=== PATIENT | female | born 1995 | race Caucasian/White ===

== ENCOUNTER 2020-12-08 11:46 | Emergency (ER) | payer MEDICAID ==
[~2020-12-08] VITALS: Ht 162.6 cm; Wt 61.0 kg
[2020-12-08 12:32] LABS: BASOPHILS % 0.2 % (0.0-2.0); HEMATOCRIT. 31.1 % (36.0-48.0); HEMOGLOBIN. 10.4 g/dL (12.0-16.0); MEAN CORPUSCULAR HEMOGLOBIN 25.8 pg (28.0-32.0); MEAN PLATELET VOLUME 7.8 fl (7.4-10.4); MONOCYTES % 6.3 % (2.0-8.0); NEUTROPHILS % 76.5 % (40.0-76.0); PLATELET 397 x1000/uL (130-400); RED BLOOD CELL COUNT 4.03 mill/uL (4.2-5.4)
[2020-12-08 12:39] LABS: CHLORIDE 107 mEq/L (98-107)
[2020-12-08] MEDS ORDERED: SODIUM CHLORIDE 0.9% 1,000 ML IV ONE (14:15)
[2020-12-08] MEDS ORDERED: CEFTRIAXONE 1 G PREMIX 50 ML IV ONE (14:15)
[2020-12-08] MEDS ORDERED: VANCOMYCIN 1 G PREMIX 200 ML IV SCH (14:15)
[2020-12-08] MEDS ORDERED: POTASSIUM CHLORIDE 20MEQ TABLET SR PO ONE (14:45)
[2020-12-08 22:20] VITALS: BP 151/96
== END 2020-12-08 22:31 | disposition short-term general hospital (02) ==
LOC: EDBD 12:01 → ER 12:01
DX: L03.116 Cellulitis of left lower limb (principal); L03.115 Cellulitis of right lower limb; F15.10 Other stimulant abuse, uncomplicated
CPT/HCPCS: 36415; 73630; 80053; 81025; 83605; 85025; 87040; 96365; 96367; 99285; J0696; J3370; J7030; Z7610

== ENCOUNTER 2021-06-11 19:30 | Emergency (ER) | payer MEDICAID, OTHER ==
[~2021-06-11] VITALS: Ht 160 cm; Wt 61.0 kg
[2021-06-11] MEDS ORDERED: MAGNESIUM/ALUMINUM HYDROXIDE/SIMETHICONE 30ML UDC PO STA (22:31)
[2021-06-11] MEDS ORDERED: VISCOUS LIDOCAINE 2% 15 ML UDC PO STA (22:31)
[2021-06-11 23:00] LABS: BASOPHILS % 0.6 % (0.0-2.0); EOSINOPHILS % 1.3 % (0.0-5.0); HEMATOCRIT. 32.8 % (36.0-48.0); LYMPHOCYTES % 37.2 % (20.0-50.0); MEAN CORPUSCULAR HEMOGLOBIN 29.8 pg (28.0-32.0); MEAN PLATELET VOLUME 8.3 fl (7.4-10.4); MONOCYTES % 11.2 % (2.0-8.0); NEUTROPHILS % 49.7 % (40.0-76.0); PLATELET 241 x1000/uL (130-400); RED BLOOD CELL COUNT 3.68 mill/uL (4.2-5.4)
[2021-06-11 23:01] LABS: CLARITY URINE CLOUDY (CLEAR); COLOR URINE YELLOW (YELLOW); KETONES URINE TRACE (NEGATIVE); LEUKOCYTE ESTERASE URINE 2+ (NEGATIVE); NITRITE URINE NEGATIVE (NEGATIVE); OCCULT BLOOD URINE NEGATIVE (NEGATIVE); PH URINE 5.5 (4.5-8.0); PROTEIN URINE 1+ (NEGATIVE); SPECIFIC GRAVITY URINE 1.045 (1.005-1.030)
[2021-06-11 23:07] LABS: CHLORIDE 113 mEq/L (98-107)
[2021-06-11 23:08] LABS: HCG SCREEN NEGATIVE
[2021-06-12] MEDS ORDERED: NITR-87 PO
[2021-06-12 00:27] VITALS: BP 134/64
== END 2021-06-12 00:28 | disposition home or self-care (01) ==
LOC: ER 19:30
DX: N39.0 Urinary tract infection, site not specified (principal); R10.33 Periumbilical pain; F15.10 Other stimulant abuse, uncomplicated; Z98.890 Other specified postprocedural states
CPT/HCPCS: 36415; 80053; 81003; 84703; 85025; 99283